=== PATIENT | male | born 1980 | race African-American/Black ===

== ENCOUNTER 2016-05-09 22:18 | Emergency (ER) | payer OTHER ==
[~2016-05-09] VITALS: Ht 182.9 cm; Wt 102.1 kg
--- NOTE | 2016-05-09 23:03 | NUR ---
PT AMBULATED TO BED 1 AT THIS TIME.
--- NOTE | 2016-05-09 23:09 | NUR ---
36Y/M PATIENT PRESENTS TO ED WITH C/O WOUND TO ABDOMEN X 1 WK . PT STATES HE HAD WOUND 1 WK AGO . DENIES N/V/D; SKIN IS PINK/WARM/DRY, ABDOMEN OPEN WOUND, REDNESS WITH MINIMAL DISCHARGE; AAOX4 WITH EVEN AND STEADY GAIT; LUNGS CLEAR BL; HR EVEN AND REGULAR; PT DENIES ANY FEVER, CP, SOB, OR COUGH AT THIS TIME; PATIENT STATES PAIN OF 6/10 AT THIS TIME; VSS; PATIENT POSITIONED FOR COMFORT; HOB ELEVATED; BEDRAILS UP X2; BED DOWN. ER MD MADE AWARE OF PT STATUS.
--- NOTE | 2016-05-09 23:15 | NUR ---
CLEANSE WOUND WITH NS, PAT DRY, COVER WITH DRY DRESSING.
--- NOTE | 2016-05-09 23:24 | NUR ---
Patient discharged with v/s stable. Written and verbal after care instructions given and explained. Patient alert, oriented and verbalized understanding of instructions. Ambulatory with steady gait. All questions addressed prior to discharge. ID band removed. Patient advised to follow up with PMD. Rx of CLEOCIN, TYLENOL 325 MG, BACTERACIN OINTMENT given. Patient educated on indication of medication including possible reaction and side effects. Opportunity to ask questions provided and answered.
[2016-05-09 23:25] VITALS: BP 131/62
== END 2016-05-09 23:25 | disposition home or self-care (01) ==
LOC: MED 22:18
DX: K65.1 Peritoneal abscess (principal)

== ENCOUNTER 2019-02-06 06:35 | Emergency (ER) | payer SELFPAY ==
[~2019-02-06] VITALS: Ht 180.3 cm; Wt 102.1 kg
[2019-02-06 06:42] VITALS: BP 131/80
--- NOTE | 2019-02-06 06:42 | NUR ---
PT AMBULATED TO ER BED 8
--- NOTE | 2019-02-06 06:48 | NUR ---
39 Y/O MALE C/O OF CELLULITIS IN THE UNDER ARM. A/OX4 AND FOLLOWS COMMANDS; SKIN IS MOIST AND ELASTIC. SKIN TURGOR <3 SECONDS. NOTED SWELLING ON LEFT UNDERARM. NO DRAINAGE. PAIN IS AN 8/10 ACUTE STABBING PAIN. PATIENT STATED THAT HE HAS BEEN CLEANING AREA WITH EPSON SALT/ ALCOHOL/ HYDROGEN PEROXIDE. PT. ALSO STATED THAT HE USED BACITRACIN BUT "MADE IT WORSE". ERMD MADE AWARE OF STATUS. VSS. SIDE RAILSX1. PMH: DENIES RX:DENIES NKDA
--- NOTE | 2019-02-06 07:16 | NUR ---
Pt report given to DAFNE MUNOZ. Transfer of care at this time.
[2019-02-06] MEDS ORDERED: LIDOCAINE/EPI 1% 1:100000 20 ML VIAL INJ ONE (07:20)
--- NOTE | 2019-02-06 07:29 | NUR ---
I&D set up at bedside.
--- NOTE | 2019-02-06 07:39 | NUR ---
Dr. Barrett at bedside for procedure.
--- NOTE | 2019-02-06 07:56 | NUR ---
APPLIED DRESSING TO LEFT AXILLARY WITHOUT ANY ISSUES
[2019-02-06 08:16] VITALS: BP 126/82
--- NOTE | 2019-02-06 08:16 | NUR ---
Patient discharged with v/s stable. Written and verbal after care instructions given and explained. Patient alert, oriented and verbalized understanding of instructions. Ambulatory with steady gait. All questions addressed prior to discharge. ID band removed. Patient advised to follow up with PMD. Rx of KEFLEX AND MOTRIN given. Patient educated on indication of medication including possible reaction and side effects. Opportunity to ask questions provided and answered. RETURN FOR WOUND CHECK IN 48 HOURS OTHERWISE FOLLOW UP WITH PCP RETURN FOR SIGNS OF INFECTION
== END 2019-02-06 08:16 | disposition home or self-care (01) ==
LOC: MED 06:35
DX: L02.412 Cutaneous abscess of left axilla (principal); L03.112 Cellulitis of left axilla
CPT/HCPCS: 10060; 99283; J2001

== ENCOUNTER 2019-09-06 09:33 | Emergency (ER) | payer SELFPAY ==
[~2019-09-06] VITALS: Ht 180.3 cm; Wt 102.1 kg
[2019-09-06 09:34] VITALS: BP 133/87
--- NOTE | 2019-09-06 09:50 | NUR ---
PT AMBULATED TO ER BED 06
[2019-09-06] MEDS ORDERED: LIDOCAINE/EPI 1% 1:100000 20 ML VIAL INJ ONE (09:55)
--- NOTE | 2019-09-06 09:58 | NUR ---
meds given to primary rn louie.
--- NOTE | 2019-09-06 10:12 | NUR ---
39 Y/O MALE PRESENTS WITH RLQ ABCESS X2 DAYS. SKIN INTACT. ABCESS IS ABOUT 3 INCHES IN DIAMETER. NO DRAINAGE NOTED. PT HAS BEEN SELF MEDICATING WITH ADVIL. DENIES ANY FEVER/CHILLS/N/V/D. NO PMH NKA
--- NOTE | 2019-09-06 10:28 | NUR ---
applied dressing ro right lower abd without any issues
[2019-09-06 10:32] VITALS: BP 133/87
--- NOTE | 2019-09-06 10:33 | NUR ---
Patient discharged with v/s stable. Written and verbal after care instructions given and explained. Patient alert, oriented and verbalized understanding of instructions. Ambulatory with steady gait. All questions addressed prior to discharge. ID band removed. Patient advised to follow up with PMD. Rx of KEFLEX, MOTRIN given. Patient educated on indication of medication including possible reaction and side effects. Opportunity to ask questions provided and answered.
== END 2019-09-06 10:33 | disposition home or self-care (01) ==
LOC: MED 09:33
DX: L02.211 Cutaneous abscess of abdominal wall (principal)
CPT/HCPCS: 10060; 99283; J2001

== ENCOUNTER 2019-11-28 08:28 | Emergency (ER) | payer SELFPAY ==
[~2019-11-28] VITALS: Ht 180.3 cm; Wt 102.1 kg
[2019-11-28 08:32] VITALS: BP 150/83
--- NOTE | 2019-11-28 08:44 | NUR ---
39 Y/O MALE PRESENTS TO ER WITH C/O RT MIDLINE BUTTOCK ABCESS X 2 DAYS. 10 PAIN. PT DENIES ANY INJURY, INSECT BITE OR CUT TO AREA WHERE ABCESS IS. DENIES DRAINAGE/DISCHARGE, OR BLOOD, FEVER, CHILLS, NAUSEA, VOMITING, DIARRHEA. COUGH, SOB. VSS, R/R EQUAL, AND UNLABORED. PT PLACED IN GOWN, SIDE RAIL X1, BED IN LOW POSITION, WILL CONTINUE TO MONITOR. DENIES PMH ALLERGY: PENICILLIN
[2019-11-28] MEDS ORDERED: LIDOCAINE MPF 1% 10 MG/ML VIAL INJ ONE (09:05)
[2019-11-28] MEDS ORDERED: LIDOCAINE/EPI 1% 1:100000 20 ML VIAL INJ ONE (09:06)
[2019-11-28 09:38] VITALS: BP 150/83
--- NOTE | 2019-11-28 09:38 | NUR ---
Patient discharged with v/s stable. Written and verbal after care instructions given and explained. Patient alert, oriented and verbalized understanding of instructions. Ambulatory with steady gait. All questions addressed prior to discharge. ID band removed. Patient advised to follow up with PMD. Rx of BACTRIM; KEFLEX; NORCO given. Patient educated on indication of medication including possible reaction and side effects. Opportunity to ask questions provided and answered.
== END 2019-11-28 09:38 | disposition home or self-care (01) ==
LOC: MED 08:28
DX: L03.317 Cellulitis of buttock (principal); Z88.0 Allergy status to penicillin
CPT/HCPCS: 10060; 99283; J2001

== ENCOUNTER 2019-11-30 10:41 | Emergency (ER) | payer SELFPAY ==
[~2019-11-30] VITALS: Ht 182.9 cm; Wt 102.1 kg
[2019-11-30 10:56] VITALS: BP 152/79
--- NOTE | 2019-11-30 11:29 | NUR ---
APPLIED DRESING TO RIGHT BUTTOCKS WITHOUT ANY ISSUES
[2019-11-30 11:32] VITALS: BP 152/79
--- NOTE | 2019-11-30 11:32 | NUR ---
Patient discharged with v/s stable. Written and verbal after care instructions given and explained. Patient verbalized understanding. Ambulatory with steady gait. All questions addressed prior to discharge. Advised to follow up with PMD.
== END 2019-11-30 11:32 | disposition home or self-care (01) ==
LOC: MED 10:41
DX: L02.31 Cutaneous abscess of buttock (principal); Z48.00 Encounter for change or removal of nonsurgical wound dressing; Z88.0 Allergy status to penicillin
CPT/HCPCS: 99281

== ENCOUNTER 2019-12-02 07:43 | Emergency (ER) | payer SELFPAY ==
[~2019-12-02] VITALS: Ht 180.3 cm; Wt 95.3 kg
[2019-12-02 07:47] VITALS: BP 124/67
--- NOTE | 2019-12-02 07:57 | NUR ---
39 Y/O MALE PRESENTS FOR RECHECK ON ABCESS ON RIGHT BUTTOCKS THAT WAS RE-PACKED ON SUNDAY. UPON ASSESSMENT, MILD SEROUSANGENOUS DRESSING NOTED ON BANDAGE. NOT ACTIVELY BLEEDING. PT DENIES ANY PAIN. NO ODOR PRESENT.
[2019-12-02 08:13] VITALS: BP 124/67
== END 2019-12-02 08:13 | disposition home or self-care (01) ==
LOC: MED 07:43
DX: L02.31 Cutaneous abscess of buttock (principal); Z88.0 Allergy status to penicillin; Z48.00 Encounter for change or removal of nonsurgical wound dressing
CPT/HCPCS: 99282

== ENCOUNTER 2019-12-05 07:06 | Emergency (ER) | payer SELFPAY ==
[~2019-12-05] VITALS: Ht 180.3 cm; Wt 105.2 kg
[2019-12-05 07:13] VITALS: BP 136/77
--- NOTE | 2019-12-05 07:22 | NUR ---
DR BHATT AT BEDSIDE TREATING ABSCESS
--- NOTE | 2019-12-05 07:30 | NUR ---
Patient seen, treated, discharged with v/s stable by Dr Barrett. Written and verbal after care instructions given and explained. Patient alert, oriented and verbalized understanding of instructions. Ambulatory with steady gait. All questions addressed prior to discharge. ID band removed. Patient advised to follow up with PMD. Opportunity to ask questions provided and answered.
[2019-12-05 07:35] VITALS: BP 136/77
== END 2019-12-05 07:30 | disposition home or self-care (01) ==
LOC: MED 07:06
DX: L02.31 Cutaneous abscess of buttock (principal); F12.10 Cannabis abuse, uncomplicated; Z48.00 Encounter for change or removal of nonsurgical wound dressing; Z88.0 Allergy status to penicillin
CPT/HCPCS: 99281; 99283

== ENCOUNTER 2021-01-14 06:35 | Emergency (ER) | payer SELFPAY ==
[~2021-01-14] VITALS: Ht 182.9 cm; Wt 102.1 kg
[2021-01-14 07:01] VITALS: BP 136/79
--- NOTE | 2021-01-14 07:01 | NUR ---
TO BED AMBULATORY
[2021-01-14] MEDS ORDERED: LIDOCAINE 2% 1000 MG/50 ML VIAL INJ ONE (07:10)
--- NOTE | 2021-01-14 07:18 | NUR ---
41 YO MALE BIBS WITH C/O ABSCESS X 3 DAYS WITH 8/10 PAIN DESCRIBES THROBBING, TO LEFT LOWER BUTTOX. PATIENT DENIES DRAINAGE FROM ABSCESS. STATES HE HAD AN ABSCESS AT THE SAME SITE X1 YEAR AGO AND IT WAS DRAINED. DENIES FEVER, CHILLS, N/V/D. A&OX4, VSS. PMH; DENIES ALLERGY; PCN
--- NOTE | 2021-01-14 07:31 | NUR ---
MD UREÑA AT BEDSIDE FOR I&D.
[2021-01-14] MEDS ORDERED: HYDROcodone/APAP 5/325 MG 1 TAB TAB PO ONE (07:50)
[2021-01-14] MEDS ORDERED: SULF-59 PO (07:50)
[2021-01-14] MEDS ORDERED: IBUP-2213 PO (07:50)
[2021-01-14] MEDS ORDERED: ACET-8386 PO (07:50)
--- NOTE | 2021-01-14 08:18 | NUR ---
Patient discharged with v/s stable. Written and verbal after care instructions given and explained. Patient alert, oriented and verbalized understanding of instructions. Ambulatory with steady gait. All questions addressed prior to discharge. ID band removed. Patient advised to follow up with PMD. Rx of NORCO, IBUPROFEN, BACTRIM given. Patient educated on indication of medication including possible reaction and side effects. Opportunity to ask questions provided and answered.
== END 2021-01-14 08:18 | disposition home or self-care (01) ==
LOC: MED 06:35
DX: L02.31 Cutaneous abscess of buttock (principal)
CPT/HCPCS: 10060; 99284; J2001

== ENCOUNTER 2021-02-10 08:10 | Emergency (ER) | payer SELFPAY ==
[~2021-02-10] VITALS: Ht 182.9 cm; Wt 102.1 kg
[~2021-02-10 08:10] MED LIST: ACET-8386 PO; IBUP-2213 PO; SULF-59 PO
[2021-02-10 08:19] VITALS: BP 153/86
--- NOTE | 2021-02-10 08:25 | NUR ---
PATIENT AMBULATED TO BED 11.
[2021-02-10] MEDS ORDERED: LIDOCAINE MPF 1% 10 MG/ML VIAL INJ ONE (08:55)
--- NOTE | 2021-02-10 09:10 | NUR ---
PT C/O RECTAL ABSCESS, DR UP PERFORMED I&D AT BEDSIDE
[2021-02-10] MEDS ORDERED: NAPR-54 PO (09:40)
[2021-02-10 09:56] VITALS: BP 111/70
--- NOTE | 2021-02-10 09:56 | NUR ---
PT VERBALIZES DC INSTRUCTIONS. NO ACUTE DISTRESS NOTED. STABLE ON DC.
--- NOTE | 2021-02-10 09:58 | NUR ---
PT'S WOUND DRESSED WITH NON-ADHERENT GUAZE PAD AND TAPE.
== END 2021-02-10 09:58 | disposition home or self-care (01) ==
LOC: MED 08:10
DX: L02.31 Cutaneous abscess of buttock (principal); F17.210 Nicotine dependence, cigarettes, uncomplicated; Z88.0 Allergy status to penicillin
CPT/HCPCS: 10060; 99284; J2001

== ENCOUNTER 2021-11-21 08:14 | Emergency (ER) | payer SELFPAY ==
[~2021-11-21] VITALS: Ht 188 cm; Wt 103.0 kg
[~2021-11-21 08:14] MED LIST changes: +NAPR-54 PO
[2021-11-21 08:21] VITALS: BP 128/95
--- NOTE | 2021-11-21 08:26 | NUR ---
Pt ambulated to bed 04.
--- NOTE | 2021-11-21 08:47 | NUR ---
41YO MALE PT C/O ABSCESS X4DAYS. PT PRESENTS WITH [id number] ABSCESS IN L GLUTE , HARD , WARM AND TENDER TO TOUCH- NO DRAINAGE NOTED. PT REPORTS INCREASE IN SIZE BY DAY W/ STINGING/ THROBBING 12/17 PAIN.STATES RELIEF AFTER TAKING ADVIL. DENIES N/V/D , CHILLS , CHEST PAIN OR SOB. PT AAOX4, NO VISIBLE DISTRESS, RESPIRATIONS EVEN AND UNLABORED. HX: DENIES ALLERGIES: PENICILLIN
[2021-11-21] MEDS ORDERED: LIDOCAINE MPF 1% 5 ML ONE (08:49)
[2021-11-21] MEDS ORDERED: LIDOCAINE MPF 1% 10 MG/ML VIAL INJ ONE (08:50)
--- NOTE | 2021-11-21 09:02 | NUR ---
MD MORE AT BEDSIDE
[2021-11-21] MEDS: LIDOCAINE MPF 1% 10 MG/ML VIAL INJ ONE (09:06)
--- NOTE | 2021-11-21 09:37 | NUR ---
Patient discharged with v/s stable. Written and verbal after care instructions FOR SKIN ABSCESS given and explained. Patient verbalized understanding. Ambulatory with steady gait. All questions addressed prior to discharge. Advised to follow up with PMD.
--- NOTE | 2021-11-21 09:38 | NUR ---
The patient's care was reviewed and supervised by Mary Carmen Maxwell RN.
== END 2021-11-21 09:37 | disposition home or self-care (01) ==
LOC: MED 08:14
DX: L02.31 Cutaneous abscess of buttock (principal)
CPT/HCPCS: 10060; 99282; J2001